=== PATIENT | female | born 1955 | race African-American/Black ===

== ENCOUNTER 2018-09-19 08:11 | Inpatient (IN) | payer MEDICAID, OTHER ==
[~2018-09-19] VITALS: Ht 165.1 cm; Wt 153.3 kg
[2018-09-19] MEDS ORDERED: IPRATROPIUM BROMIDE (0.02%) 0.5MG/2.5ML NEB HHN STA (09:02)
[2018-09-19] MEDS ORDERED: ALBUTEROL (0.083%) 2.5MG/3ML NEB HHN STA ×2 (09:02→11:42)
[2018-09-19] MEDS ORDERED: METHYLPREDNISOLONE SOD SUCC 125 MG/2 ML VIAL IV STA (09:02)
[2018-09-19] MEDS ORDERED: IPRATROPIUM BROMIDE (0.02%) 0.5MG/2.5ML NEB ONE (09:17)
[2018-09-19] MEDS ORDERED: ALBUTEROL (0.5%) 2.5MG/0.5ML NEB HHN ONE (09:17)
[2018-09-19] MEDS ORDERED: ALBUTEROL (0.083%) 2.5MG/3ML NEB ONE ×2 (09:18→12:01)
[2018-09-19 09:45] LABS: BASOPHILS % 0.5 % (0.0-2.0); EOSINOPHILS % 2.8 % (0.0-5.0); HEMATOCRIT. 39.3 % (36.0-48.0); HEMOGLOBIN. 12.6 g/dL (12.0-16.0); LYMPHOCYTES % 35.3 % (20.0-50.0); MEAN CORPUSCULAR HEMOGLOBIN 29.7 pg (28.0-32.0); MEAN CORPUSCULAR VOLUME 92.5 fL (81.0-99.0); MEAN PLATELET VOLUME 10.4 fl (7.4-10.4); MONOCYTES % 8.4 % (2.0-8.0); PLATELET 217 x1000/uL (130-400); RED BLOOD CELL COUNT 4.25 mill/uL (4.2-5.4); RED CELL DISTRIBUTION WIDTH 14.8 % (11.6-14.6)
[2018-09-19 09:48] LABS: CHLORIDE 112 mEq/L (98-107)
[2018-09-19] MEDS ORDERED: HYDRALAZINE 20MG/ML VIAL IV ONE (12:45)
[2018-09-19] MEDS ORDERED: LIDOCAINE 1%/EPI 1:100,000 10 ML VIAL IJ ONE (12:45)
[2018-09-19 16:48] VITALS: BP 190/81
[2018-09-19 17:21] VITALS: BP 190/81
[2018-09-19] MEDS ORDERED: OMEP40CA34 MT (17:46)
[2018-09-19] MEDS ORDERED: SPIR50TA5 PO (17:46)
[2018-09-19] MEDS ORDERED: CARV25TA47 MT (17:46)
[2018-09-19] MEDS ORDERED: SPIR25TA6 PO (17:46)
[2018-09-19] MEDS ORDERED: CHOL200074 MT (17:48)
[2018-09-19] MEDS ORDERED: HYDR-4134 MT (17:48)
[2018-09-19] MEDS ORDERED: CALC0.253 MT (17:48)
[2018-09-19] MEDS ORDERED: TIOT18CA3 INH (17:49)
[2018-09-19] MEDS ORDERED: FLUT1DIS6 INH (17:50)
[2018-09-19] MEDS ORDERED: BECL10.62 IH (17:50)
[2018-09-19] MEDS ORDERED: METHYLPREDNISOLONE SOD SUCC 125 MG/2 ML VIAL IV SCH (18:00)
[2018-09-19] MEDS ORDERED: LORAZEPAM 2MG/ML CPJ IV PRN (18:00)
[2018-09-19] MEDS ORDERED: IPRATROPIUM/ALBUTEROL 0.5-3(2.5)MG/3ML NEB INH PRN (18:00)
[2018-09-19] MEDS ORDERED: ONDANSETRON HCL 4MG/2ML INJ IV PRN (18:00)
[2018-09-19] MEDS ORDERED: MEDICATION NOT ON FORMULARY EA (Fluticasone/Salmeterol (Advair 500-50) 1 PUFF) INH SCH (18:00)
[2018-09-19] MEDS ORDERED: MEDICATION NOT ON FORMULARY EA (Tiotropium Bromide (Spiriva) 1 CAP) INH SCH (18:00)
[2018-09-19] MEDS ORDERED: NON FORMULARY PATIENT HOME MED XX SCH (18:00)
[2018-09-19] MEDS ORDERED: AZITHROMYCIN 500 MG in DEXT 5% WATER 250 ML IV SCH ×2 (18:00→18:45)
[2018-09-19 20:00] VITALS: BP 191/83
[2018-09-19] MEDS: METHYLPREDNISOLONE SOD SUCC 125 MG/2 ML VIAL IV SCH (20:22)
[2018-09-19] MEDS: CARVEDILOL 25MG TABLET PO SCH (20:23)
[2018-09-19] MEDS: HYDRALAZINE HCL 25MG TABLET PO SCH (20:23)
[2018-09-19] MEDS: HYDROCODONE/ACETAMINOPHEN 5/325MG TABLET PO PRN (20:24)
[2018-09-19] MEDS: SPIRONOLACTONE 25MG TABLET PO SCH (20:24)
[2018-09-19] MEDS: THIAMINE HCL 100MG TABLET PO SCH (20:25)
[2018-09-19] MEDS: IPRATROPIUM/ALBUTEROL 0.5-3(2.5)MG/3ML NEB HHN SCH (20:29)
[2018-09-19 20:30] LABS: CLARITY URINE CLEAR (CLEAR); COLOR URINE YELLOW (YELLOW); KETONES URINE NEGATIVE (NEGATIVE); LEUKOCYTE ESTERASE URINE NEGATIVE (NEGATIVE); NITRITE URINE NEGATIVE (NEGATIVE); OCCULT BLOOD URINE NEGATIVE (NEGATIVE); PROTEIN URINE NEGATIVE (NEGATIVE); SPECIFIC GRAVITY URINE 1.019 (1.005-1.030); UROBILINOGEN URINE 0.2 E.U./dL (0.2-1.0)
[2018-09-19] MEDS: BUDESONIDE 0.5MG/2ML NEB HHN SCH (20:30)
[2018-09-19] MEDS: ENOXAPARIN 40MG/0.4ML SYR SUBCUT SCH (20:38)
[2018-09-19 21:49] LABS: *AMPHETAMINES SCREEN URINE NEGATIVE (NEGATIVE); *BARBITURATES SCREEN URINE NEGATIVE (NEGATIVE); *BENZODIAZEPINES SCREEN URINE NEGATIVE (NEGATIVE); *COCAINE SCREEN URINE NEGATIVE (NEGATIVE)
[2018-09-19 21:50] LABS: CANNABINOID URINE SCREEN NEGATIVE (NEGATIVE); METHADONE URINE SCREEN NEGATIVE (NEGATIVE); OPIATES URINE SCREEN NEGATIVE (NEGATIVE); PHENCYCLIDINE URINE SCREEN NEGATIVE (NEGATIVE)
[2018-09-19] MEDS: CEFTRIAXONE 1 G PREMIX 50 ML IV SCH (21:50)
[2018-09-20] VITALS: BP 132/72
[2018-09-20] MEDS: IPRATROPIUM/ALBUTEROL 0.5-3(2.5)MG/3ML NEB HHN SCH ×4 (00:36→19:43)
[2018-09-20 01:34] LABS: CREATINE KINASE 318 IU/L (26-192)
[2018-09-20 01:35] LABS: CREATINE KINASE MB FRACTION 3.8 ng/mL (0.5-3.6)
[2018-09-20 04:00] VITALS: BP 128/74
[2018-09-20] MEDS: METHYLPREDNISOLONE SOD SUCC 125 MG/2 ML VIAL IV SCH ×3 (04:54→21:26)
[2018-09-20] MEDS: HYDROCODONE/ACETAMINOPHEN 5/325MG TABLET PO PRN (05:07)
[2018-09-20] MEDS: OMEPRAZOLE 20MG CAPSULE EXTENDED RELEASE PO SCH (06:20)
[2018-09-20 08:00] VITALS: BP 173/74
[2018-09-20] MEDS: HYDRALAZINE HCL 25MG TABLET PO SCH ×3 (08:41→17:05)
[2018-09-20] MEDS: CARVEDILOL 25MG TABLET PO SCH ×2 (08:42→21:26)
[2018-09-20] MEDS: ENOXAPARIN 40MG/0.4ML SYR SUBCUT SCH ×2 (08:42→21:30)
[2018-09-20] MEDS: SPIRONOLACTONE 50MG TABLET PO SCH (08:42)
[2018-09-20] MEDS: ASPIRIN 81MG EC TABLET PO SCH (08:42)
[2018-09-20] MEDS: THIAMINE HCL 100MG TABLET PO SCH (08:42)
[2018-09-20] MEDS: CALCITRIOL 0.25MCG CAPSULE PO SCH (08:42)
[2018-09-20] MEDS: CHOLECALCIFEROL (D3) 1000 UNIT TABLET PO SCH (08:42)
[2018-09-20 09:09] LABS: BASOPHILS % 0.1 % (0.0-2.0); HEMOGLOBIN. 12.3 g/dL (12.0-16.0); LYMPHOCYTES % 7.8 % (20.0-50.0); MEAN CORPUSCULAR HEMOGLOBIN 29.7 pg (28.0-32.0); MEAN PLATELET VOLUME 10.7 fl (7.4-10.4); MONOCYTES % 2.4 % (2.0-8.0); NEUTROPHILS % 89.7 % (40.0-76.0); PLATELET 216 x1000/uL (130-400); RED BLOOD CELL COUNT 4.14 mill/uL (4.2-5.4); RED CELL DISTRIBUTION WIDTH 14.8 % (11.6-14.6)
[2018-09-20 09:54] LABS: CHLORIDE 112 mEq/L (98-107)
[2018-09-20 10:25] LABS: PHOSPHORUS 1.6 mg/dL (2.5-4.9)
[2018-09-20 10:27] LABS: CREATINE KINASE 289 IU/L (26-192)
[2018-09-20 10:29] LABS: CREATINE KINASE MB FRACTION 3.6 ng/mL (0.5-3.6)
[2018-09-20 12:00] VITALS: BP 141/75
[2018-09-20] MEDS: BUDESONIDE 0.5MG/2ML NEB HHN SCH (12:19)
[2018-09-20 16:00] VITALS: BP 161/81
[2018-09-20] MEDS ORDERED: AZITHROMYCIN 500 MG in DEXT 5% WATER 250 ML IV SCH (18:00)
[2018-09-20 20:00] VITALS: BP 195/102
[2018-09-20] MEDS: SPIRONOLACTONE 25MG TABLET PO SCH (21:30)
[2018-09-20] MEDS: CEFTRIAXONE 1 G PREMIX 50 ML IV SCH (21:30)
[2018-09-21] VITALS: BP 170/82
[2018-09-21] MEDS ORDERED: AMLODIPINE 5MG TABLET PO SCH (00:15)
[2018-09-21] MEDS: IPRATROPIUM/ALBUTEROL 0.5-3(2.5)MG/3ML NEB HHN SCH ×4 (01:09→21:10)
[2018-09-21 04:00] VITALS: BP 138/63
[2018-09-21] MEDS: METHYLPREDNISOLONE SOD SUCC 125 MG/2 ML VIAL IV SCH ×2 (05:07→14:20)
[2018-09-21] MEDS: OMEPRAZOLE 20MG CAPSULE EXTENDED RELEASE PO SCH (06:25)
[2018-09-21 07:26] LABS: BASOPHILS % 0.1 % (0.0-2.0); HEMATOCRIT. 38.7 % (36.0-48.0); HEMOGLOBIN. 12.3 g/dL (12.0-16.0); LYMPHOCYTES % 8.2 % (20.0-50.0); MEAN CORPUSCULAR HEMOGLOBIN 29.4 pg (28.0-32.0); MEAN CORPUSCULAR VOLUME 92.8 fL (81.0-99.0); MEAN PLATELET VOLUME 11.5 fl (7.4-10.4); MONOCYTES % 2.8 % (2.0-8.0); NEUTROPHILS % 88.9 % (40.0-76.0); PLATELET 171 x1000/uL (130-400); RED BLOOD CELL COUNT 4.17 mill/uL (4.2-5.4); RED CELL DISTRIBUTION WIDTH 15.3 % (11.6-14.6)
[2018-09-21 07:32] LABS: PHOSPHORUS 2.4 mg/dL (2.5-4.9)
[2018-09-21 08:00] VITALS: BP 167/86
[2018-09-21] MEDS ORDERED: PANTOPRAZOLE SODIUM 40 MG/VIAL IV SCH (09:00)
[2018-09-21] MEDS ORDERED: AMLODIPINE 10MG TABLET PO NR (09:30)
[2018-09-21] MEDS: CHOLECALCIFEROL (D3) 1000 UNIT TABLET PO SCH (09:44)
[2018-09-21] MEDS: ENOXAPARIN 40MG/0.4ML SYR SUBCUT SCH ×2 (09:44→20:54)
[2018-09-21] MEDS: CARVEDILOL 25MG TABLET PO SCH ×2 (09:45→20:54)
[2018-09-21] MEDS: THIAMINE HCL 100MG TABLET PO SCH (09:45)
[2018-09-21] MEDS: CALCITRIOL 0.25MCG CAPSULE PO SCH (09:45)
[2018-09-21] MEDS: SPIRONOLACTONE 50MG TABLET PO SCH (09:46)
[2018-09-21] MEDS: ASPIRIN 81MG EC TABLET PO SCH (09:46)
[2018-09-21] MEDS: HYDRALAZINE HCL 25MG TABLET PO SCH ×3 (09:46→20:53)
[2018-09-21 12:00] VITALS: BP 158/86
[2018-09-21 16:00] VITALS: BP 153/76
[2018-09-21 20:00] VITALS: BP 155/75
[2018-09-21] MEDS: METHYLPREDNISOLONE SOD SUCC 40 MG/ML VIAL IV SCH (20:52)
[2018-09-21] MEDS: SPIRONOLACTONE 25MG TABLET PO SCH (20:53)
[2018-09-21] MEDS: AMLODIPINE 5MG TABLET PO SCH (20:53)
[2018-09-22] VITALS (7 sets, daily range): BP systolic 112–150; BP diastolic 57–94
[2018-09-22] MEDS ORDERED: DIGOXIN 500MCG/2ML AMP IV SCH ×3 (00:30→01:15)
[2018-09-22] MEDS: IPRATROPIUM/ALBUTEROL 0.5-3(2.5)MG/3ML NEB HHN SCH ×3 (01:24→20:15)
[2018-09-22] MEDS: METHYLPREDNISOLONE SOD SUCC 40 MG/ML VIAL IV SCH ×2 (05:40→17:24)
[2018-09-22] MEDS: ENOXAPARIN 40MG/0.4ML SYR SUBCUT SCH ×2 (08:49→20:22)
[2018-09-22] MEDS: CHOLECALCIFEROL (D3) 1000 UNIT TABLET PO SCH (08:50)
[2018-09-22] MEDS: CALCITRIOL 0.25MCG CAPSULE PO SCH (08:50)
[2018-09-22] MEDS: CARVEDILOL 25MG TABLET PO SCH ×2 (08:50→20:22)
[2018-09-22] MEDS: HYDRALAZINE HCL 25MG TABLET PO SCH ×3 (08:50→17:24)
[2018-09-22] MEDS: FAMOTIDINE 20MG TABLET PO SCH ×2 (08:51→20:21)
[2018-09-22] MEDS: AMLODIPINE 5MG TABLET PO SCH ×2 (08:52→20:21)
[2018-09-22] MEDS: ACETAMINOPHEN 325MG TABLET PO PRN (08:52)
[2018-09-22] MEDS: ASPIRIN 81MG EC TABLET PO SCH (08:52)
[2018-09-22] MEDS: SPIRONOLACTONE 50MG TABLET PO SCH (08:53)
[2018-09-22] MEDS: THIAMINE HCL 100MG TABLET PO SCH (08:53)
[2018-09-22] MEDS: SPIRONOLACTONE 25MG TABLET PO SCH (20:21)
[2018-09-23] VITALS: BP 126/57
[2018-09-23] MEDS: IPRATROPIUM/ALBUTEROL 0.5-3(2.5)MG/3ML NEB HHN SCH ×4 (00:55→20:32)
[2018-09-23 04:00] VITALS: BP 122/62
[2018-09-23] MEDS: METHYLPREDNISOLONE SOD SUCC 40 MG/ML VIAL IV SCH ×2 (05:27→17:39)
[2018-09-23] MEDS: ACETAMINOPHEN 325MG TABLET PO PRN (07:04)
[2018-09-23 08:00] VITALS: BP 186/96
[2018-09-23] MEDS: CALCITRIOL 0.25MCG CAPSULE PO SCH (08:40)
[2018-09-23] MEDS: FAMOTIDINE 20MG TABLET PO SCH ×2 (08:41→21:53)
[2018-09-23] MEDS: HYDRALAZINE HCL 25MG TABLET PO SCH (08:41)
[2018-09-23] MEDS: ASPIRIN 81MG EC TABLET PO SCH (08:41)
[2018-09-23] MEDS: AMLODIPINE 5MG TABLET PO SCH (08:41)
[2018-09-23] MEDS: CHOLECALCIFEROL (D3) 1000 UNIT TABLET PO SCH (08:41)
[2018-09-23] MEDS: THIAMINE HCL 100MG TABLET PO SCH (08:41)
[2018-09-23] MEDS: ENOXAPARIN 40MG/0.4ML SYR SUBCUT SCH ×2 (08:42→21:53)
[2018-09-23] MEDS: SPIRONOLACTONE 50MG TABLET PO SCH (08:42)
[2018-09-23] MEDS: CARVEDILOL 25MG TABLET PO SCH (08:42)
[2018-09-23] MEDS: NIFEDIPINE XL 60MG TAB PO SCH ×2 (11:31→21:53)
[2018-09-23 12:00] VITALS: BP 153/95
[2018-09-23] MEDS: HYDRALAZINE HCL 50MG TABLET PO SCH ×2 (13:28→21:53)
[2018-09-23 16:00] VITALS: BP 140/82
[2018-09-23 19:42] LABS: BASOPHILS % 0.2 % (0.0-2.0); EOSINOPHILS % 0.1 % (0.0-5.0); HEMOGLOBIN. 13.2 g/dL (12.0-16.0); LYMPHOCYTES % 9.4 % (20.0-50.0); MEAN CORPUSCULAR HEMOGLOBIN 29.7 pg (28.0-32.0); MEAN PLATELET VOLUME 10.9 fl (7.4-10.4); MONOCYTES % 5.3 % (2.0-8.0); PLATELET 165 x1000/uL (130-400); RED BLOOD CELL COUNT 4.46 mill/uL (4.2-5.4); RED CELL DISTRIBUTION WIDTH 14.9 % (11.6-14.6)
[2018-09-23 19:51] LABS: CHLORIDE 112 mEq/L (98-107)
[2018-09-23 20:00] VITALS: BP 127/57
[2018-09-24] VITALS: BP 114/50
[2018-09-24] MEDS: IPRATROPIUM/ALBUTEROL 0.5-3(2.5)MG/3ML NEB HHN SCH ×4 (01:36→20:50)
[2018-09-24 04:00] VITALS: BP 130/90
[2018-09-24] MEDS: METHYLPREDNISOLONE SOD SUCC 40 MG/ML VIAL IV SCH (05:30)
[2018-09-24] MEDS: HYDRALAZINE HCL 50MG TABLET PO SCH ×3 (05:30→22:00)
[2018-09-24 08:00] VITALS: BP 138/90
[2018-09-24] MEDS: FAMOTIDINE 20MG TABLET PO SCH ×2 (09:17→20:59)
[2018-09-24] MEDS: ASPIRIN 81MG EC TABLET PO SCH (09:17)
[2018-09-24] MEDS: ENOXAPARIN 40MG/0.4ML SYR SUBCUT SCH (09:17)
[2018-09-24] MEDS: THIAMINE HCL 100MG TABLET PO SCH (09:17)
[2018-09-24] MEDS: CALCITRIOL 0.25MCG CAPSULE PO SCH (09:17)
[2018-09-24] MEDS: NIFEDIPINE XL 60MG TAB PO SCH (09:17)
[2018-09-24] MEDS: CHOLECALCIFEROL (D3) 1000 UNIT TABLET PO SCH (09:18)
[2018-09-24 12:00] VITALS: BP 127/81
[2018-09-24] MEDS: DILTIAZEM HCL 60MG TABLET PO SCH ×2 (15:02→21:45)
[2018-09-24 16:00] VITALS: BP 150/87
[2018-09-24] MEDS: APIXABAN 5 MG TABLET PO SCH (17:44)
[2018-09-24 20:00] VITALS: BP 123/60
[2018-09-25] VITALS: BP 114/78
[2018-09-25] MEDS: IPRATROPIUM/ALBUTEROL 0.5-3(2.5)MG/3ML NEB HHN SCH ×4 (00:55→21:12)
[2018-09-25 04:00] VITALS: BP 152/91
[2018-09-25] MEDS: HYDRALAZINE HCL 50MG TABLET PO SCH ×2 (05:15→13:16)
[2018-09-25] MEDS: DILTIAZEM HCL 60MG TABLET PO SCH ×4 (05:16→23:55)
[2018-09-25 08:00] VITALS: BP 148/77
[2018-09-25] MEDS: CALCITRIOL 0.25MCG CAPSULE PO SCH (09:35)
[2018-09-25] MEDS: CHOLECALCIFEROL (D3) 1000 UNIT TABLET PO SCH (09:36)
[2018-09-25] MEDS: APIXABAN 5 MG TABLET PO SCH ×2 (09:36→17:33)
[2018-09-25] MEDS: FAMOTIDINE 20MG TABLET PO SCH ×2 (09:36→21:27)
[2018-09-25] MEDS: ASPIRIN 81MG EC TABLET PO SCH (09:36)
[2018-09-25] MEDS: THIAMINE HCL 100MG TABLET PO SCH (09:36)
[2018-09-25 12:00] VITALS: BP 148/88
[2018-09-25] MEDS ORDERED: HYDRALAZINE HCL 100MG TABLET PO SCH (14:00)
[2018-09-25 16:00] VITALS: BP 153/88
[2018-09-25 16:47] LABS: BASOPHILS % 0.2 % (0.0-2.0); EOSINOPHILS % 0.1 % (0.0-5.0); HEMATOCRIT. 40.9 % (36.0-48.0); HEMOGLOBIN. 13.4 g/dL (12.0-16.0); LYMPHOCYTES % 16.6 % (20.0-50.0); MEAN CORPUSCULAR HEMOGLOBIN 29.9 pg (28.0-32.0); MEAN CORPUSCULAR VOLUME 91.4 fL (81.0-99.0); MONOCYTES % 8.2 % (2.0-8.0); NEUTROPHILS % 74.9 % (40.0-76.0); PLATELET 277 x1000/uL (130-400); RED BLOOD CELL COUNT 4.48 mill/uL (4.2-5.4); RED CELL DISTRIBUTION WIDTH 15.2 % (11.6-14.6)
[2018-09-25 20:09] VITALS: BP 144/85
[2018-09-25] MEDS: HYDRALAZINE HCL 100MG TABLET PO SCH (21:27)
[2018-09-25] MEDS: ACETAMINOPHEN 325MG TABLET PO PRN (23:55)
[2018-09-26] VITALS: BP 129/86
[2018-09-26] MEDS: IPRATROPIUM/ALBUTEROL 0.5-3(2.5)MG/3ML NEB HHN SCH (01:07)
[2018-09-26 04:00] VITALS: BP 127/87
[2018-09-26] MEDS: HYDRALAZINE HCL 100MG TABLET PO SCH (05:07)
[2018-09-26] MEDS: DILTIAZEM HCL 60MG TABLET PO SCH ×2 (05:08→12:47)
[2018-09-26 07:56] VITALS: BP 125/67
[2018-09-26 09:01] LABS: BASOPHILS % 0.4 % (0.0-2.0); EOSINOPHILS % 0.6 % (0.0-5.0); HEMOGLOBIN. 13.4 g/dL (12.0-16.0); MEAN CORPUSCULAR HEMOGLOBIN 29.9 pg (28.0-32.0); MEAN CORPUSCULAR VOLUME 91.6 fL (81.0-99.0); MONOCYTES % 5.5 % (2.0-8.0); NEUTROPHILS % 75.5 % (40.0-76.0); RED BLOOD CELL COUNT 4.48 mill/uL (4.2-5.4); RED CELL DISTRIBUTION WIDTH 15.2 % (11.6-14.6)
[2018-09-26 09:17] LABS: PHOSPHORUS 2.9 mg/dL (2.5-4.9)
[2018-09-26] MEDS: CHOLECALCIFEROL (D3) 1000 UNIT TABLET PO SCH (09:23)
[2018-09-26] MEDS: THIAMINE HCL 100MG TABLET PO SCH (09:23)
[2018-09-26] MEDS: ASPIRIN 81MG EC TABLET PO SCH (09:23)
[2018-09-26] MEDS: CALCITRIOL 0.25MCG CAPSULE PO SCH (09:23)
[2018-09-26] MEDS: FAMOTIDINE 20MG TABLET PO SCH (09:23)
[2018-09-26] MEDS: APIXABAN 5 MG TABLET PO SCH (09:24)
[2018-09-26 12:00] VITALS: BP 133/66
[2018-09-26 12:02] VITALS: BP 133/66
== END 2018-09-26 14:00 | disposition home or self-care (01) | DRG 133 ==
LOC: ER 08:48 → 8WST 13:34 → ENRESERV 15:43
PROVIDERS: ADMIT Internal Medicine Nephrology; ATTEND Internal Medicine Nephrology
PROC: 0HDRXZZ Extraction of Toe Nail, External Approach (ICD-10-PCS; 2018-09-19)
PROC: 5A09357 Assistance with Respiratory Ventilation, Less than 24 Consecutive Hours, Continuous Positive Airway Pressure (ICD-10-PCS; principal; 2018-09-20)
DX: J96.00 Acute respiratory failure, unspecified whether with hypoxia or hypercapnia (principal); N17.1 Acute kidney failure with acute cortical necrosis; E11.22 Type 2 diabetes mellitus with diabetic chronic kidney disease; J44.1 Chronic obstructive pulmonary disease with (acute) exacerbation; E66.2 Morbid (severe) obesity with alveolar hypoventilation; B35.1 Tinea unguium; I50.9 Heart failure, unspecified; I13.0 Hypertensive heart and chronic kidney disease with heart failure and stage 1 through stage 4 chronic kidney disease, or unspecified chronic kidney disease; I48.91 Unspecified atrial fibrillation; J45.909 Unspecified asthma, uncomplicated; N18.3 Chronic kidney disease, stage 3 (moderate); Z68.43 Body mass index [BMI] 50.0-59.9, adult; K21.9 Gastro-esophageal reflux disease without esophagitis; M19.90 Unspecified osteoarthritis, unspecified site; L60.0 Ingrowing nail; E78.5 Hyperlipidemia, unspecified; Z82.3 Family history of stroke; Z82.49 Family history of ischemic heart disease and other diseases of the circulatory system; Z86.718 Personal history of other venous thrombosis and embolism; Z86.73 Personal history of transient ischemic attack (TIA), and cerebral infarction without residual deficits; Z87.891 Personal history of nicotine dependence; Z98.84 Bariatric surgery status; Z88.8 Allergy status to other drugs, medicaments and biological substances; Z88.1 Allergy status to other antibiotic agents
CPT/HCPCS: 36415; 71045; 80048; 80061; 80305; 82550; 82553; 83036; 83735; 83880; 84100; 84443; 84484; 87804; 93005; 93306; 94640; 94660; 96374; 96375; 97116; 97162; 99291; C1893; C9113; J0360; J0456; J0696; J1160; J1650; J2405; J2920; J2930; J3490; J7050; J7060; J7611; J7620; J7626

== ENCOUNTER 2019-04-23 19:06 | Inpatient (IN) | payer MEDICARE, MEDICAID ==
[~2019-04-23] VITALS: Ht 180.3 cm; Wt 157.9 kg
[2019-04-23] MEDS ORDERED: PANTOPRAZOLE SODIUM 40 MG/VIAL IV STA (19:48)
[2019-04-23] MEDS ORDERED: ONDANSETRON HCL 4MG/2ML INJ IV STA (19:48)
[2019-04-23] MEDS ORDERED: SODIUM CHLORIDE 0.9% 1,000 ML IV ONE (19:48)
[2019-04-23] MEDS ORDERED: MAGNESIUM/ALUMINUM HYDROXIDE/SIMETHICONE 30ML UDC PO STA (19:48)
[2019-04-23] MEDS ORDERED: VISCOUS LIDOCAINE 2% 15 ML UDC MM ONE (20:00)
[2019-04-23 20:17] LABS: BASOPHILS % 0.2 % (0.0-2.0); HEMATOCRIT. 36.4 % (36.0-48.0); HEMOGLOBIN. 12.2 g/dL (12.0-16.0); LYMPHOCYTES % 9.7 % (20.0-50.0); MEAN CORPUSCULAR HEMOGLOBIN 30.3 pg (28.0-32.0); MEAN CORPUSCULAR VOLUME 90.5 fL (81.0-99.0); MEAN PLATELET VOLUME 9.5 fl (7.4-10.4); NEUTROPHILS % 84.1 % (40.0-76.0); PLATELET 232 x1000/uL (130-400); RED BLOOD CELL COUNT 4.02 mill/uL (4.2-5.4); RED CELL DISTRIBUTION WIDTH 16.6 % (11.6-14.6)
[2019-04-23 20:21] LABS: CHLORIDE 108 mEq/L (98-107)
[2019-04-23 20:23] LABS: INR 1.1; PROTHROMBIN TIME 10.9 sec (9.6-11.0)
[2019-04-23] MEDS ORDERED: DIPHENHYDRAMINE 50MG/ML VIAL IV ONE (21:15)
[2019-04-23] MEDS ORDERED: METOCLOPRAMIDE HCL 10MG/2ML VIAL IV ONE (21:15)
[2019-04-23] MEDS ORDERED: MORPHINE SULFATE 4 MG/ML CPJ (NOT FOR IM USE) IV ONE (22:45)
[2019-04-23] MEDS ORDERED: METRONIDAZOLE 500 MG PREMIX 100 ML IV ONE (22:45)
[2019-04-23] MEDS ORDERED: CEFTRIAXONE 1 G PREMIX 50 ML IV ONE (22:45)
[2019-04-24 05:00] VITALS: BP 206/88
[2019-04-24] MEDS ORDERED: ONDANSETRON HCL 4MG/2ML INJ IV PRN (06:00)
[2019-04-24] MEDS ORDERED: METOPROLOL TARTRATE 5MG/5ML VIAL IV NR (06:11)
[2019-04-24] MEDS ORDERED: SODIUM CHLORIDE 0.9% 1,000 ML IV SCH (06:12)
[2019-04-24] MEDS: MORPHINE SULFATE 4 MG/ML CPJ (NOT FOR IM USE) IV PRN (06:43)
[2019-04-24 08:00] VITALS: BP 122/62
[2019-04-24 08:45] VITALS: BP 122/62
[2019-04-24 12:16] VITALS: BP 166/85
[2019-04-24] MEDS: SODIUM CHLORIDE 0.45% 1,000 ML IV SCH (13:12)
[2019-04-24] MEDS: METRONIDAZOLE 500 MG PREMIX 100 ML IV SCH ×2 (14:26→22:00)
[2019-04-24] MEDS: HYDRALAZINE 20MG/ML VIAL IV SCH ×2 (14:26→17:51)
[2019-04-24] MEDS: NITROGLYCERIN OINT 1GM/INCH UDPKT TD SCH ×2 (14:26→18:00)
[2019-04-24] MEDS ORDERED: IPRATROPIUM/ALBUTEROL 0.5-3(2.5)MG/3ML NEB HHN PRN (16:00)
[2019-04-24] MEDS: FAMOTIDINE 20MG/2ML VIAL IV SCH (16:00)
[2019-04-24] MEDS: METHYLPREDNISOLONE SOD SUCC 40 MG/ML VIAL IV SCH (16:00)
[2019-04-24 16:18] VITALS: BP 209/87
[2019-04-24] MEDS: IPRATROPIUM/ALBUTEROL 0.5-3(2.5)MG/3ML NEB HHN SCH ×2 (16:38→19:36)
[2019-04-24] MEDS ORDERED: ACETAMINOPHEN 650MG/20.3ML UDC PO PRN (17:45)
[2019-04-24] MEDS ORDERED: CLONIDINE 0.2MG TABLET PO PRN (18:15)
[2019-04-24] MEDS: AMLODIPINE 5MG TABLET PO SCH (18:21)
[2019-04-24 20:00] VITALS: BP 104/67
[2019-04-25] VITALS: BP_SYST 135; BP_SYST 190; BP_DIAS 78; BP_DIAS 85
[2019-04-25] MEDS: IPRATROPIUM/ALBUTEROL 0.5-3(2.5)MG/3ML NEB HHN SCH ×6 (00:18→21:58)
[2019-04-25] MEDS: SODIUM CHLORIDE 0.45% 1,000 ML IV SCH ×2 (00:50→14:10)
[2019-04-25] MEDS: CEFTRIAXONE 1 G PREMIX 50 ML IV SCH (01:00)
[2019-04-25] MEDS: NITROGLYCERIN OINT 1GM/INCH UDPKT TD SCH ×5 (02:10→23:56)
[2019-04-25 03:28] LABS: CLARITY URINE CLEAR (CLEAR); COLOR URINE YELLOW (YELLOW); KETONES URINE NEGATIVE (NEGATIVE); LEUKOCYTE ESTERASE URINE NEGATIVE (NEGATIVE); NITRITE URINE NEGATIVE (NEGATIVE); OCCULT BLOOD URINE NEGATIVE (NEGATIVE); PROTEIN URINE 1+ (NEGATIVE); SPECIFIC GRAVITY URINE 1.014 (1.005-1.030); UROBILINOGEN URINE 0.2 E.U./dL (0.2-1.0)
[2019-04-25] MEDS: HYDRALAZINE 20MG/ML VIAL IV SCH ×5 (05:17→23:55)
[2019-04-25] MEDS: METRONIDAZOLE 500 MG PREMIX 100 ML IV SCH ×3 (05:19→23:54)
[2019-04-25 07:14] LABS: BASOPHILS % 0.3 % (0.0-2.0); EOSINOPHILS % 0.4 % (0.0-5.0); HEMATOCRIT. 36.3 % (36.0-48.0); HEMOGLOBIN. 11.8 g/dL (12.0-16.0); LYMPHOCYTES % 18.1 % (20.0-50.0); MEAN CORPUSCULAR HEMOGLOBIN 29.9 pg (28.0-32.0); MEAN CORPUSCULAR VOLUME 92.1 fL (81.0-99.0); MEAN PLATELET VOLUME 9.9 fl (7.4-10.4); MONOCYTES % 11.1 % (2.0-8.0); NEUTROPHILS % 70.1 % (40.0-76.0); PLATELET 188 x1000/uL (130-400); RED BLOOD CELL COUNT 3.94 mill/uL (4.2-5.4); RED CELL DISTRIBUTION WIDTH 16.4 % (11.6-14.6)
[2019-04-25 08:00] VITALS: BP 184/86
[2019-04-25] MEDS: METHYLPREDNISOLONE SOD SUCC 40 MG/ML VIAL IV SCH ×4 (08:00→23:55)
[2019-04-25 08:03] LABS: PHOSPHORUS 3.3 mg/dL (2.5-4.9)
[2019-04-25] MEDS: DEXTROSE 5% WATER 1,000 ML IV SCH (08:45)
[2019-04-25] MEDS: FAMOTIDINE 20MG/2ML VIAL IV SCH (09:00)
[2019-04-25] MEDS: AMLODIPINE 5MG TABLET PO SCH ×2 (09:27→17:40)
[2019-04-25] MEDS ORDERED: KCL 20MEQ/100ML PREMIX 100 ML IV SCH (10:00)
[2019-04-25 12:00] VITALS: BP 176/80
[2019-04-25] MEDS ORDERED: SODIUM BICARBONATE 4% (2.4MEQ) 5ML VIAL IV ONE (13:49)
[2019-04-25] MEDS ORDERED: LIDOCAINE HCL 1% 20ML VIAL (Pyxis) INJ ONE (13:49)
[2019-04-25 16:00] VITALS: BP 184/86
[2019-04-25] MEDS: MORPHINE SULFATE 4 MG/ML CPJ (NOT FOR IM USE) IV PRN (16:15)
[2019-04-25 20:00] VITALS: BP 179/71
[2019-04-26] VITALS: BP 137/72
[2019-04-26] MEDS: IPRATROPIUM/ALBUTEROL 0.5-3(2.5)MG/3ML NEB HHN SCH ×6 (00:48→21:48)
[2019-04-26] MEDS: CEFTRIAXONE 1 G PREMIX 50 ML IV SCH (02:02)
[2019-04-26 04:00] VITALS: BP 164/81
[2019-04-26] MEDS: METRONIDAZOLE 500 MG PREMIX 100 ML IV SCH ×3 (05:37→21:43)
[2019-04-26] MEDS: DEXTROSE 5% WATER 1,000 ML IV SCH (05:38)
[2019-04-26] MEDS: NITROGLYCERIN OINT 1GM/INCH UDPKT TD SCH ×3 (05:38→18:02)
[2019-04-26] MEDS: HYDRALAZINE 20MG/ML VIAL IV SCH ×4 (05:39→21:43)
[2019-04-26] MEDS: MORPHINE SULFATE 4 MG/ML CPJ (NOT FOR IM USE) IV PRN ×2 (06:14→14:31)
[2019-04-26 08:48] VITALS: BP 154/78
[2019-04-26] MEDS: METHYLPREDNISOLONE SOD SUCC 40 MG/ML VIAL IV SCH (08:51)
[2019-04-26 09:47] LABS: HEMATOCRIT. 33.8 % (36.0-48.0); MEAN CORPUSCULAR HEMOGLOBIN 30.1 pg (28.0-32.0); MEAN CORPUSCULAR VOLUME 92.3 fL (81.0-99.0); MEAN PLATELET VOLUME 10.6 fl (7.4-10.4); PLATELET 143 x1000/uL (130-400); RED BLOOD CELL COUNT 3.66 mill/uL (4.2-5.4); RED CELL DISTRIBUTION WIDTH 16.7 % (11.6-14.6)
[2019-04-26 10:15] LABS: PHOSPHORUS 3.1 mg/dL (2.5-4.9)
[2019-04-26] MEDS: AMLODIPINE 5MG TABLET PO SCH ×2 (10:22→18:03)
[2019-04-26 10:46] LABS: PLATELET ESTIMATE NORMAL
[2019-04-26] MEDS: DOCUSATE SODIUM 100MG CAPSULE PO SCH ×2 (12:00→18:03)
[2019-04-26 12:34] VITALS: BP 145/72
[2019-04-26 13:03] LABS: AMYLASE 35 IU/L (25-115)
[2019-04-26 16:23] VITALS: BP 116/53
[2019-04-26] MEDS: FAMOTIDINE 20MG/2ML VIAL IV SCH (17:03)
[2019-04-26] MEDS: PREDNISONE 20MG TABLET PO SCH (18:02)
[2019-04-26 20:00] VITALS: BP 186/80
[2019-04-27] VITALS: BP 145/71
[2019-04-27] MEDS: DEXTROSE 5% WATER 1,000 ML IV SCH ×2 (00:20→20:45)
[2019-04-27] MEDS: NITROGLYCERIN OINT 1GM/INCH UDPKT TD SCH ×4 (00:20→17:26)
[2019-04-27] MEDS: CEFTRIAXONE 1 G PREMIX 50 ML IV SCH (00:21)
[2019-04-27] MEDS: MORPHINE SULFATE 4 MG/ML CPJ (NOT FOR IM USE) IV PRN ×3 (00:22→22:02)
[2019-04-27] MEDS: IPRATROPIUM/ALBUTEROL 0.5-3(2.5)MG/3ML NEB HHN SCH ×6 (01:38→21:04)
[2019-04-27 04:00] VITALS: BP 170/90
[2019-04-27] MEDS: METRONIDAZOLE 500 MG PREMIX 100 ML IV SCH ×4 (06:48→22:00)
[2019-04-27] MEDS: HYDRALAZINE 20MG/ML VIAL IV SCH ×4 (06:49→21:53)
[2019-04-27 08:00] VITALS: BP 157/79
[2019-04-27] MEDS: DOCUSATE SODIUM 100MG CAPSULE PO SCH ×2 (09:00→17:24)
[2019-04-27] MEDS: AMLODIPINE 5MG TABLET PO SCH ×2 (09:15→17:25)
[2019-04-27] MEDS: FAMOTIDINE 20MG/2ML VIAL IV SCH (09:15)
[2019-04-27] MEDS: PREDNISONE 20MG TABLET PO SCH ×2 (09:16→17:24)
[2019-04-27 12:00] VITALS: BP 162/80
[2019-04-27 16:00] VITALS: BP 168/78
[2019-04-27] MEDS: PANTOPRAZOLE 40MG DR TABLET PO SCH (18:56)
[2019-04-27 20:29] VITALS: BP 175/74
[2019-04-28] MEDS: NITROGLYCERIN OINT 1GM/INCH UDPKT TD SCH ×4 (00:13→17:36)
[2019-04-28] MEDS: CEFTRIAXONE 1 G PREMIX 50 ML IV SCH (00:17)
[2019-04-28 00:40] VITALS: BP 132/81
[2019-04-28] MEDS: IPRATROPIUM/ALBUTEROL 0.5-3(2.5)MG/3ML NEB HHN SCH ×6 (01:06→20:56)
[2019-04-28 04:48] VITALS: BP 161/84
[2019-04-28] MEDS: HYDRALAZINE 20MG/ML VIAL IV SCH ×4 (04:56→21:24)
[2019-04-28] MEDS: MORPHINE SULFATE 4 MG/ML CPJ (NOT FOR IM USE) IV PRN (04:56)
[2019-04-28] MEDS: METRONIDAZOLE 500 MG PREMIX 100 ML IV SCH ×3 (06:00→21:25)
[2019-04-28] MEDS: PANTOPRAZOLE 40MG DR TABLET PO SCH (06:26)
[2019-04-28 08:00] VITALS: BP 169/85
[2019-04-28] MEDS: AMLODIPINE 5MG TABLET PO SCH ×2 (09:18→17:36)
[2019-04-28] MEDS: DOCUSATE SODIUM 100MG CAPSULE PO SCH ×2 (09:18→17:36)
[2019-04-28] MEDS: PREDNISONE 20MG TABLET PO SCH ×2 (09:18→17:36)
[2019-04-28] MEDS ORDERED: SODIUM BICARBONATE 4% (2.4MEQ) 5ML VIAL IV ONE (10:11)
[2019-04-28] MEDS ORDERED: LIDOCAINE HCL 1% 20ML VIAL (Pyxis) INJ ONE (10:11)
[2019-04-28 12:00] VITALS: BP 136/88
[2019-04-28 12:24] LABS: HEMATOCRIT. 32.5 % (36.0-48.0); HEMOGLOBIN. 10.6 g/dL (12.0-16.0); MEAN CORPUSCULAR HEMOGLOBIN 29.9 pg (28.0-32.0); MEAN CORPUSCULAR VOLUME 91.7 fL (81.0-99.0); MEAN PLATELET VOLUME 10.1 fl (7.4-10.4); PLATELET 132 x1000/uL (130-400); RED BLOOD CELL COUNT 3.54 mill/uL (4.2-5.4); RED CELL DISTRIBUTION WIDTH 16.1 % (11.6-14.6)
[2019-04-28 12:58] LABS: PLATELET ESTIMATE NORMAL
[2019-04-28 16:00] VITALS: BP 154/79
[2019-04-28 16:15] LABS: HEMATOCRIT. 32.1 % (36.0-48.0); HEMOGLOBIN. 10.5 g/dL (12.0-16.0); MEAN CORPUSCULAR VOLUME 91.9 fL (81.0-99.0); MEAN PLATELET VOLUME 9.6 fl (7.4-10.4); PLATELET 151 x1000/uL (130-400); RED BLOOD CELL COUNT 3.49 mill/uL (4.2-5.4); RED CELL DISTRIBUTION WIDTH 16.1 % (11.6-14.6)
[2019-04-28 16:42] LABS: PLATELET ESTIMATE NORMAL
[2019-04-28] MEDS: DEXTROSE 5% WATER 1,000 ML IV SCH (16:45)
[2019-04-28 20:00] VITALS: BP 130/64
[2019-04-29] VITALS: BP 158/82
[2019-04-29] MEDS: CEFTRIAXONE 1 G PREMIX 50 ML IV SCH (00:15)
[2019-04-29] MEDS: NITROGLYCERIN OINT 1GM/INCH UDPKT TD SCH ×4 (00:16→18:02)
[2019-04-29] MEDS: MORPHINE SULFATE 4 MG/ML CPJ (NOT FOR IM USE) IV PRN (00:17)
[2019-04-29] MEDS: IPRATROPIUM/ALBUTEROL 0.5-3(2.5)MG/3ML NEB HHN SCH ×6 (00:41→20:00)
[2019-04-29] MEDS ORDERED: TRAZODONE HCL 50MG TABLET PO PRN (01:00)
[2019-04-29 04:00] VITALS: BP 155/74
[2019-04-29] MEDS: METRONIDAZOLE 500 MG PREMIX 100 ML IV SCH ×3 (05:26→22:08)
[2019-04-29] MEDS: HYDRALAZINE 20MG/ML VIAL IV SCH ×4 (05:26→22:08)
[2019-04-29] MEDS: PANTOPRAZOLE 40MG DR TABLET PO SCH (06:32)
[2019-04-29 07:19] LABS: HEMATOCRIT. 30.6 % (36.0-48.0); HEMOGLOBIN. 10.1 g/dL (12.0-16.0); MEAN CORPUSCULAR HEMOGLOBIN 30.2 pg (28.0-32.0); MEAN CORPUSCULAR VOLUME 91.7 fL (81.0-99.0); MEAN PLATELET VOLUME 10.1 fl (7.4-10.4); PLATELET 140 x1000/uL (130-400); RED BLOOD CELL COUNT 3.34 mill/uL (4.2-5.4); RED CELL DISTRIBUTION WIDTH 15.7 % (11.6-14.6)
[2019-04-29 08:00] VITALS: BP 148/83
[2019-04-29 08:35] LABS: PLATELET ESTIMATE NORMAL
[2019-04-29] MEDS: DOCUSATE SODIUM 100MG CAPSULE PO SCH (09:48)
[2019-04-29] MEDS: PREDNISONE 20MG TABLET PO SCH (09:48)
[2019-04-29] MEDS: AMLODIPINE 5MG TABLET PO SCH ×2 (09:48→17:25)
[2019-04-29] MEDS: DEXTROSE 5% WATER 1,000 ML IV SCH (09:58)
[2019-04-29] MEDS ORDERED: CLONIDINE 0.1MG TABLET PO ONE (12:15)
[2019-04-29 12:35] VITALS: BP 147/71
[2019-04-29 16:54] VITALS: BP 166/87
[2019-04-29] MEDS: THROAT LOZENGES-BENZOCAINE/MENTH/CETYLPYRD CL LOZENGES MM SCH (18:07)
[2019-04-29 20:26] VITALS: BP 128/89
[2019-04-29] MEDS ORDERED: CLONIDINE 0.1MG TABLET PO SCH (21:00)
[2019-04-29] MEDS: TRAMADOL 50MG TABLET PO PRN (21:08)
[2019-04-30 00:22] VITALS: BP 166/91
[2019-04-30] MEDS: CEFTRIAXONE 1 G PREMIX 50 ML IV SCH (00:58)
[2019-04-30] MEDS: NITROGLYCERIN OINT 1GM/INCH UDPKT TD SCH ×4 (00:58→18:26)
[2019-04-30] MEDS: THROAT LOZENGES-BENZOCAINE/MENTH/CETYLPYRD CL LOZENGES MM SCH ×4 (01:09→18:23)
[2019-04-30 04:00] VITALS: BP 143/86
[2019-04-30] MEDS: IPRATROPIUM/ALBUTEROL 0.5-3(2.5)MG/3ML NEB HHN SCH ×5 (04:33→21:02)
[2019-04-30] MEDS: METRONIDAZOLE 500 MG PREMIX 100 ML IV SCH ×3 (05:17→21:08)
[2019-04-30] MEDS: HYDRALAZINE 20MG/ML VIAL IV SCH ×4 (05:17→21:36)
[2019-04-30] MEDS: PANTOPRAZOLE 40MG DR TABLET PO SCH (06:31)
[2019-04-30 08:00] VITALS: BP 161/85
[2019-04-30 08:15] LABS: HEMATOCRIT. 34.2 % (36.0-48.0); HEMOGLOBIN. 11.2 g/dL (12.0-16.0); MEAN CORPUSCULAR HEMOGLOBIN 30.2 pg (28.0-32.0); MEAN PLATELET VOLUME 9.8 fl (7.4-10.4); PLATELET 137 x1000/uL (130-400); RED BLOOD CELL COUNT 3.71 mill/uL (4.2-5.4); RED CELL DISTRIBUTION WIDTH 16.4 % (11.6-14.6)
[2019-04-30 09:15] LABS: NUCLEATED RED BLOOD CELLS 1 /100 WBC
[2019-04-30 09:16] LABS: PLATELET ESTIMATE NORMAL
[2019-04-30] MEDS: AMLODIPINE 5MG TABLET PO SCH ×2 (10:01→17:23)
[2019-04-30] MEDS: PREDNISONE 20MG TABLET PO SCH (10:01)
[2019-04-30] MEDS: TRAMADOL 50MG TABLET PO PRN ×2 (10:13→18:26)
[2019-04-30] MEDS ORDERED: MORPHINE SULFATE 2 MG/ML CPJ (NOT FOR IM USE) IV PRN ×2 (10:45→11:45)
[2019-04-30 12:00] VITALS: BP 159/78
[2019-04-30 16:00] VITALS: BP 176/92
[2019-04-30 20:15] VITALS: BP 172/83
[2019-05-01] VITALS (7 sets, daily range): BP systolic 132–163; BP diastolic 76–81
[2019-05-01] MEDS: NITROGLYCERIN OINT 1GM/INCH UDPKT TD SCH ×4 (00:56→18:00)
[2019-05-01] MEDS: CEFTRIAXONE 1 G PREMIX 50 ML IV SCH (00:56)
[2019-05-01] MEDS: THROAT LOZENGES-BENZOCAINE/MENTH/CETYLPYRD CL LOZENGES MM SCH ×3 (00:58→14:47)
[2019-05-01] MEDS: IPRATROPIUM/ALBUTEROL 0.5-3(2.5)MG/3ML NEB HHN SCH ×4 (02:02→20:37)
[2019-05-01] MEDS: METRONIDAZOLE 500 MG PREMIX 100 ML IV SCH ×2 (05:11→15:01)
[2019-05-01] MEDS: HYDRALAZINE 20MG/ML VIAL IV SCH ×2 (05:11→15:15)
[2019-05-01] MEDS: PANTOPRAZOLE 40MG DR TABLET PO SCH (06:41)
[2019-05-01] MEDS: PREDNISONE 20MG TABLET PO SCH (08:48)
[2019-05-01] MEDS: AMLODIPINE 5MG TABLET PO SCH ×2 (08:48→16:57)
[2019-05-01] MEDS ORDERED: POTASSIUM CHLORIDE 20MEQ TABLET SR PO NR (10:00)
[2019-05-01] MEDS ORDERED: PROPOFOL 200MG/20ML VIAL IV ONE ×2 (11:04→11:40)
[2019-05-01] MEDS ORDERED: SUCCINYLCHOLINE CHLORIDE 200MG/10ML IV ONE (11:06)
[2019-05-01] MEDS ORDERED: ALBUTEROL 90MCG/PUFF 17GM INHALER INH ONE (11:20)
[2019-05-01] MEDS ORDERED: FLUCONAZOLE 100MG TABLET PO NR (12:15)
[2019-05-01] MEDS: TRAMADOL 50MG TABLET PO PRN (16:56)
[2019-05-02] MEDS ORDERED: FLUCONAZOLE 100MG TABLET PO SCH (09:00)
[2019-05-03 10:11] LABS: SACCHAROMYCES CEREVISIAE IGG 29.3 Units (0.0-24.9); SACCHAROMYCES CEREVISIAE IGM <20.0 Units (0.0-24.9)
[2019-05-03 15:06] LABS: ATYPICAL pANCA <1:20 titer (Neg:<1:20)
== END 2019-05-01 21:25 | disposition home health service (06) | DRG 247 ==
LOC: ER 19:06 → 6WST 23:04 → ENRESERV 04-24 02:06
PROVIDERS: ADMIT Family Medicine Adult Medicine; ATTEND Family Medicine Adult Medicine
PROC: 0D9670Z Drainage of Stomach with Drainage Device, Via Natural or Artificial Opening (ICD-10-PCS; principal; 2019-04-23)
PROC: 05HY33Z Insertion of Infusion Device into Upper Vein, Percutaneous Approach (ICD-10-PCS; 2019-04-25)
PROC: B54NZZA Ultrasonography of Left Upper Extremity Veins, Guidance (ICD-10-PCS; 2019-04-25)
PROC: 05H633Z Insertion of Infusion Device into Left Subclavian Vein, Percutaneous Approach (ICD-10-PCS; 2019-04-28)
PROC: 0DB58ZX Excision of Esophagus, Via Natural or Artificial Opening Endoscopic, Diagnostic (ICD-10-PCS; 2019-05-01)
PROC: 0DB68ZX Excision of Stomach, Via Natural or Artificial Opening Endoscopic, Diagnostic (ICD-10-PCS; 2019-05-01)
DX: K56.609 Unspecified intestinal obstruction, unspecified as to partial versus complete obstruction (principal); J96.20 Acute and chronic respiratory failure, unspecified whether with hypoxia or hypercapnia; J69.0 Pneumonitis due to inhalation of food and vomit; N17.9 Acute kidney failure, unspecified; J84.9 Interstitial pulmonary disease, unspecified; B37.81 Candidal esophagitis; I48.0 Paroxysmal atrial fibrillation; E66.01 Morbid (severe) obesity due to excess calories; E86.0 Dehydration; E87.0 Hyperosmolality and hypernatremia; E83.41 Hypermagnesemia; I13.0 Hypertensive heart and chronic kidney disease with heart failure and stage 1 through stage 4 chronic kidney disease, or unspecified chronic kidney disease; K56.41 Fecal impaction; N18.9 Chronic kidney disease, unspecified; F41.9 Anxiety disorder, unspecified; G47.33 Obstructive sleep apnea (adult) (pediatric); I16.0 Hypertensive urgency; K27.9 Peptic ulcer, site unspecified, unspecified as acute or chronic, without hemorrhage or perforation; K44.9 Diaphragmatic hernia without obstruction or gangrene; K21.9 Gastro-esophageal reflux disease without esophagitis; I50.32 Chronic diastolic (congestive) heart failure; J45.901 Unspecified asthma with (acute) exacerbation; K22.10 Ulcer of esophagus without bleeding; J44.9 Chronic obstructive pulmonary disease, unspecified; K29.70 Gastritis, unspecified, without bleeding; K76.0 Fatty (change of) liver, not elsewhere classified; K31.4 Gastric diverticulum; R47.02 Dysphasia; M75.00 Adhesive capsulitis of unspecified shoulder; Z79.899 Other long term (current) drug therapy; Z87.891 Personal history of nicotine dependence; Z98.84 Bariatric surgery status; Z90.711 Acquired absence of uterus with remaining cervical stump; Z68.42 Body mass index [BMI] 45.0-49.9, adult; Z88.0 Allergy status to penicillin; Z88.1 Allergy status to other antibiotic agents; Z88.8 Allergy status to other drugs, medicaments and biological substances
CPT/HCPCS: 36415; 36573; 71045; 74018; 74176; 76700; 76937; 80048; 80076; 81003; 82150; 82270; 82728; 83540; 83550; 83605; 83735; 84100; 84145; 86256; 86671; 86850; 86900; 87015; 87045; 87427; 87449; 88305; 88312; 88313; 89055; 92610; 93005; 93970; 94640; 94660; 97116; 97162; 97166; 97535; 99285; C1725; C9113; J0330; J0360; J0696; J1200; J2270; J2405; J2704; J2765; J2920; J3480; J3490; J7030; J7070; J7512; J7620

== ENCOUNTER 2019-06-01 10:43 | Inpatient (IN) | payer MEDICARE, MEDICAID ==
[~2019-06-01] VITALS: Ht 172.7 cm; Wt 139.7 kg
[2019-06-01] MEDS ORDERED: SODIUM CHLORIDE 0.9% 1,000 ML IV ONE (11:07)
[2019-06-01] MEDS ORDERED: METHYLPREDNISOLONE SOD SUCC 125 MG/2 ML VIAL IV ONE (11:15)
[2019-06-01] MEDS ORDERED: FAMOTIDINE 20MG/2ML VIAL IV ONE (11:15)
[2019-06-01] MEDS ORDERED: DIPHENHYDRAMINE 50MG/ML VIAL IV ONE ×2 (11:15→14:45)
[2019-06-01 12:44] LABS: BASOPHILS % 0.7 % (0.0-2.0); HEMATOCRIT. 37.1 % (36.0-48.0); HEMOGLOBIN. 12.1 g/dL (12.0-16.0); LYMPHOCYTES % 43.7 % (20.0-50.0); MEAN CORPUSCULAR HEMOGLOBIN 29.6 pg (28.0-32.0); MEAN CORPUSCULAR VOLUME 90.5 fL (81.0-99.0); MEAN PLATELET VOLUME 10.5 fl (7.4-10.4); MONOCYTES % 10.6 % (2.0-8.0); PLATELET 188 x1000/uL (130-400); RED CELL DISTRIBUTION WIDTH 16.4 % (11.6-14.6)
[2019-06-01 12:54] LABS: CHLORIDE 113 mEq/L (98-107)
[2019-06-01] MEDS ORDERED: ACETAMINOPHEN 325MG TABLET PO PRN (15:30)
[2019-06-01] MEDS ORDERED: ONDANSETRON HCL 4MG/2ML INJ IV PRN (15:30)
[2019-06-01 19:08] VITALS: BP 155/85
[2019-06-01 20:00] VITALS: BP 155/83
[2019-06-01] MEDS ORDERED: IPRATROPIUM/ALBUTEROL 0.5-3(2.5)MG/3ML NEB HHN PRN (20:45)
[2019-06-01] MEDS: AMLODIPINE 5MG TABLET PO SCH (21:14)
[2019-06-01] MEDS: METHYLPREDNISOLONE SOD SUCC 40 MG/ML VIAL IV SCH (21:15)
[2019-06-01] MEDS: FAMOTIDINE 20MG/2ML VIAL IV SCH (21:15)
[2019-06-01] MEDS: DIPHENHYDRAMINE 50MG/ML VIAL IV PRN (21:29)
[2019-06-01] MEDS: HYDRALAZINE HCL 50MG TABLET PO SCH (21:29)
[2019-06-01] MEDS ORDERED: FERR324T4 MT (22:08)
[2019-06-01] MEDS ORDERED: ISOS30TA6 MT (22:08)
[2019-06-01] MEDS ORDERED: HYDR100T26 MT (22:08)
[2019-06-01] MEDS ORDERED: NIFE90TA34 MT (22:08)
[2019-06-01] MEDS ORDERED: FURO20TA4 MT (22:08)
[2019-06-01] MEDS ORDERED: ALBU6.7H9 INH (22:08)
[2019-06-01] MEDS ORDERED: TEMA15CA MT (22:08)
[2019-06-01] MEDS: VANCOMYCIN 1 G PREMIX 200 ML IV SCH (22:32)
[2019-06-01 22:40] VITALS: BP 155/85
[2019-06-01] MEDS: POLYVINYL ALCOHOL OPHTH DROPS 15ML EACHEYE SCH (23:44)
[2019-06-02] VITALS: BP 139/84
[2019-06-02] MEDS ORDERED: OMEP40CA34 MT (03:21)
[2019-06-02 04:05] LABS: CLARITY URINE CLEAR (CLEAR); COLOR URINE YELLOW (YELLOW); KETONES URINE TRACE (NEGATIVE); LEUKOCYTE ESTERASE URINE NEGATIVE (NEGATIVE); NITRITE URINE NEGATIVE (NEGATIVE); OCCULT BLOOD URINE NEGATIVE (NEGATIVE); PH URINE 5.5 (4.5-8.0); PROTEIN URINE TRACE (NEGATIVE); SPECIFIC GRAVITY URINE 1.023 (1.005-1.030)
[2019-06-02 04:23] LABS: *AMPHETAMINES SCREEN URINE NEGATIVE (NEGATIVE); *BARBITURATES SCREEN URINE NEGATIVE (NEGATIVE); *COCAINE SCREEN URINE NEGATIVE (NEGATIVE); CANNABINOID URINE SCREEN NEGATIVE (NEGATIVE); METHADONE URINE SCREEN NEGATIVE (NEGATIVE); OPIATES URINE SCREEN NEGATIVE (NEGATIVE); PHENCYCLIDINE URINE SCREEN NEGATIVE (NEGATIVE)
[2019-06-02 04:25] LABS: *BENZODIAZEPINES SCREEN URINE NEGATIVE (NEGATIVE)
[2019-06-02] MEDS: METHYLPREDNISOLONE SOD SUCC 40 MG/ML VIAL IV SCH ×3 (05:43→20:27)
[2019-06-02] MEDS: POLYVINYL ALCOHOL OPHTH DROPS 15ML EACHEYE SCH ×4 (05:44→23:32)
[2019-06-02 07:55] VITALS: BP 161/103
[2019-06-02] MEDS: AMLODIPINE 5MG TABLET PO SCH (09:27)
[2019-06-02] MEDS: HYDRALAZINE HCL 50MG TABLET PO SCH ×2 (09:27→20:26)
[2019-06-02] MEDS: FAMOTIDINE 20MG/2ML VIAL IV SCH (09:27)
[2019-06-02 11:50] VITALS: BP 196/114
[2019-06-02 12:00] VITALS: BP 169/90
[2019-06-02 16:13] VITALS: BP 154/94
[2019-06-02 16:53] LABS: BASOPHILS % 0.1 % (0.0-2.0); HEMATOCRIT. 35.8 % (36.0-48.0); HEMOGLOBIN. 11.7 g/dL (12.0-16.0); MEAN CORPUSCULAR HEMOGLOBIN 29.9 pg (28.0-32.0); MEAN CORPUSCULAR VOLUME 91.7 fL (81.0-99.0); MEAN PLATELET VOLUME 10.9 fl (7.4-10.4); MONOCYTES % 3.2 % (2.0-8.0); NEUTROPHILS % 88.7 % (40.0-76.0); PLATELET 182 x1000/uL (130-400); RED BLOOD CELL COUNT 3.91 mill/uL (4.2-5.4); RED CELL DISTRIBUTION WIDTH 15.9 % (11.6-14.6)
[2019-06-02 20:00] VITALS: BP 175/91
[2019-06-02] MEDS ORDERED: NIFEDIPINE XL 30MG TAB PO SCH (20:00)
[2019-06-02] MEDS: ERYTHROMYCIN BASE 0.5% OPHTH OINT 3.5GM BOTHEYE SCH (20:26)
[2019-06-02] MEDS: VANCOMYCIN 1 G PREMIX 200 ML IV SCH (20:27)
[2019-06-03] VITALS: BP 162/88
[2019-06-03 04:00] VITALS: BP 165/85
[2019-06-03] MEDS: POLYVINYL ALCOHOL OPHTH DROPS 15ML EACHEYE SCH ×4 (05:34→23:20)
[2019-06-03] MEDS: ERYTHROMYCIN BASE 0.5% OPHTH OINT 3.5GM BOTHEYE SCH ×3 (05:34→21:47)
[2019-06-03 08:00] VITALS: BP 164/81
[2019-06-03] MEDS: NIFEDIPINE XL 90MG TAB PO SCH (08:50)
[2019-06-03] MEDS: HYDRALAZINE HCL 50MG TABLET PO SCH ×2 (08:50→21:45)
[2019-06-03] MEDS: FAMOTIDINE 20MG/2ML VIAL IV SCH (09:00)
[2019-06-03] MEDS: PREDNISONE 10MG TABLET PO SCH ×2 (10:24→17:24)
[2019-06-03] MEDS: PANTOPRAZOLE 40MG DR TABLET PO SCH (10:25)
[2019-06-03 12:00] VITALS: BP 147/86
[2019-06-03] MEDS: BUDESONIDE 0.5MG/2ML NEB HHN SCH ×2 (14:07→20:51)
[2019-06-03] MEDS: IPRATROPIUM/ALBUTEROL 0.5-3(2.5)MG/3ML NEB HHN SCH ×2 (14:08→20:51)
[2019-06-03] MEDS: LORATADINE 10MG TABLET PO SCH (14:20)
[2019-06-03 16:00] VITALS: BP 152/77
[2019-06-03] MEDS ORDERED: MONTELUKAST SODIUM 10MG TABLET PO SCH (17:00)
[2019-06-03 20:00] VITALS: BP 137/69
[2019-06-03] MEDS: CIPROFLOXACIN 0.3% OPHTH SOLN 2.5ML BOTHEYE SCH (21:46)
[2019-06-03] MEDS: VANCOMYCIN 1 G PREMIX 200 ML IV SCH (21:47)
[2019-06-03] MEDS: HYDROCORTISONE 2.5% CREAM 20GM TOP SCH (22:25)
[2019-06-03] MEDS: DIPHENHYDRAMINE 50MG/ML VIAL IV PRN (22:25)
[2019-06-03] MEDS: PREDNISOLONE ACETATE 1% OPHTH DROPS 5ML BOTHEYE SCH (23:20)
[2019-06-04] VITALS: BP 137/74
[2019-06-04] MEDS: IPRATROPIUM/ALBUTEROL 0.5-3(2.5)MG/3ML NEB HHN SCH ×3 (02:20→14:52)
[2019-06-04 04:00] VITALS: BP 131/61
[2019-06-04] MEDS: PANTOPRAZOLE 40MG DR TABLET PO SCH (06:08)
[2019-06-04] MEDS: HYDROCORTISONE 2.5% CREAM 20GM TOP SCH ×2 (06:08→13:00)
[2019-06-04] MEDS: POLYVINYL ALCOHOL OPHTH DROPS 15ML EACHEYE SCH ×2 (06:09→12:48)
[2019-06-04] MEDS: PREDNISOLONE ACETATE 1% OPHTH DROPS 5ML BOTHEYE SCH ×2 (06:09→12:48)
[2019-06-04] MEDS: ERYTHROMYCIN BASE 0.5% OPHTH OINT 3.5GM BOTHEYE SCH ×2 (06:09→13:00)
[2019-06-04 08:00] VITALS: BP 157/82
[2019-06-04] MEDS: FAMOTIDINE 20MG/2ML VIAL IV SCH (08:58)
[2019-06-04] MEDS: NIFEDIPINE XL 90MG TAB PO SCH (08:58)
[2019-06-04] MEDS: CIPROFLOXACIN 0.3% OPHTH SOLN 2.5ML BOTHEYE SCH ×2 (08:59→12:47)
[2019-06-04] MEDS: LORATADINE 10MG TABLET PO SCH (08:59)
[2019-06-04] MEDS: PREDNISONE 10MG TABLET PO SCH (08:59)
[2019-06-04] MEDS: HYDRALAZINE HCL 50MG TABLET PO SCH (08:59)
[2019-06-04] MEDS: BUDESONIDE 0.5MG/2ML NEB HHN SCH (09:06)
[2019-06-04] MEDS ORDERED: P20 MT (10:11)
[2019-06-04] MEDS ORDERED: CIPR2.5D9 BOTHEYE (10:11)
[2019-06-04] MEDS ORDERED: HYDR453.3 TOP (10:11)
[2019-06-04] MEDS ORDERED: POLY15DR31 EACHEYE (10:11)
[2019-06-04] MEDS ORDERED: ALBU2.5V13 NEB (10:20)
[2019-06-04] MEDS ORDERED: FAMO20TA8 MT (10:20)
[2019-06-04 12:44] VITALS: BP 153/83
[2019-06-04] MEDS ORDERED: CEPH750C9 MT (12:52)
[2019-06-04 13:13] VITALS: BP 153/83
== END 2019-06-04 15:55 | disposition home or self-care (01) | DRG 811 ==
LOC: ER 10:56 → 7WST 14:42 → ENRESERV 16:56
PROVIDERS: ADMIT Internal Medicine; ATTEND Internal Medicine
DX: T78.3XXA Angioneurotic edema, initial encounter (principal); N17.9 Acute kidney failure, unspecified; E87.0 Hyperosmolality and hypernatremia; E11.22 Type 2 diabetes mellitus with diabetic chronic kidney disease; E11.36 Type 2 diabetes mellitus with diabetic cataract; E44.1 Mild protein-calorie malnutrition; E87.8 Other disorders of electrolyte and fluid balance, not elsewhere classified; N18.3 Chronic kidney disease, stage 3 (moderate); J45.909 Unspecified asthma, uncomplicated; I13.0 Hypertensive heart and chronic kidney disease with heart failure and stage 1 through stage 4 chronic kidney disease, or unspecified chronic kidney disease; K21.9 Gastro-esophageal reflux disease without esophagitis; I16.0 Hypertensive urgency; F41.9 Anxiety disorder, unspecified; G47.33 Obstructive sleep apnea (adult) (pediatric); I25.10 Atherosclerotic heart disease of native coronary artery without angina pectoris; I48.91 Unspecified atrial fibrillation; I50.32 Chronic diastolic (congestive) heart failure; J44.9 Chronic obstructive pulmonary disease, unspecified; E66.01 Morbid (severe) obesity due to excess calories; K44.9 Diaphragmatic hernia without obstruction or gangrene; K27.9 Peptic ulcer, site unspecified, unspecified as acute or chronic, without hemorrhage or perforation; Z88.1 Allergy status to other antibiotic agents; Z71.3 Dietary counseling and surveillance; L03.211 Cellulitis of face; Z87.891 Personal history of nicotine dependence; T49.5X5A Adverse effect of ophthalmological drugs and preparations, initial encounter; Y92.89 Other specified places as the place of occurrence of the external cause; Z68.42 Body mass index [BMI] 45.0-49.9, adult; H10.9 Unspecified conjunctivitis
CPT/HCPCS: 36415; 71045; 80048; 80305; 81003; 93005; 93970; 94640; 99285; C1893; J1200; J2920; J2930; J3370; J3490; J7030; J7512; J7620; J7626